=== PATIENT | male | born 1990 | race African-American/Black ===

== ENCOUNTER 2017-11-23 00:15 | Emergency (ER) | payer MEDICAID ==
[~2017-11-23] VITALS: Ht 177.8 cm; Wt 66.4 kg
[2017-11-23 01:40] VITALS: BP 126/85
== END 2017-11-23 03:00 | disposition left against medical advice (07) ==
LOC: ER 00:15
DX: M79.672 Pain in left foot (principal); Z53.21 Procedure and treatment not carried out due to patient leaving prior to being seen by health care provider

== ENCOUNTER 2018-01-02 12:02 | Emergency (ER) | payer MEDICAID ==
[~2018-01-02] VITALS: Ht 177.8 cm; Wt 66.0 kg
[2018-01-02 12:41] VITALS: BP 120/75
[2018-01-02] MEDS ORDERED: LIDOCAINE HCL 1% 20ML VIAL (Pyxis) INJ MC ONE (15:45)
[2018-01-02] MEDS ORDERED: BACITRACIN ZINC OINT UDPKT TOP ONE (15:45)
== END 2018-01-02 17:37 | disposition home or self-care (01) ==
LOC: ER 16:43
DX: M27.2 Inflammatory conditions of jaws (principal); F12.90 Cannabis use, unspecified, uncomplicated
CPT/HCPCS: 10060; 99283; J3490; Z7610

== ENCOUNTER 2018-12-21 23:04 | Emergency (ER) | payer MEDICAID ==
[~2018-12-21] VITALS: Ht 177.8 cm; Wt 71.0 kg
[2018-12-21 23:07] VITALS: BP 110/57
[2018-12-21] MEDS ORDERED: AZITHROMYCIN 500 MG TABLET PO ONE (23:45)
[2018-12-21] MEDS ORDERED: CEFTRIAXONE SODIUM 250 MG/VIAL IM ONE (23:45)
== END 2018-12-22 00:07 | disposition home or self-care (01) ==
LOC: ER 23:04
DX: A63.8 Other specified predominantly sexually transmitted diseases (principal); F12.10 Cannabis abuse, uncomplicated; F17.200 Nicotine dependence, unspecified, uncomplicated
CPT/HCPCS: 96372; 99283; J0696

== ENCOUNTER 2019-10-02 12:42 | Emergency (ER) | payer SELFPAY ==
[~2019-10-02] VITALS: Ht 170.2 cm; Wt 86.0 kg
[2019-10-02 13:55] VITALS: BP 110/58
== END 2019-10-02 17:59 | disposition home or self-care (01) ==
LOC: ER 14:15
DX: R11.10 Vomiting, unspecified (principal)
CPT/HCPCS: 99281